=== PATIENT | female | born 1975 | race Caucasian/White ===

== ENCOUNTER 2017-03-29 07:06 | Day surgery (SDC) | payer BC ==
[2017-03-29] MEDS ORDERED: Sodium Chloride 0.9% 10 ML Syringe FLUSH PRN (07:30)
[2017-03-29] MEDS ORDERED: Lactated Ringers 1,000 ML IV SCH (07:30)
[2017-03-29] MEDS ORDERED: Propofol 200 MG/20 ML SDV IV ONE (09:00)
[2017-03-29] MEDS ORDERED: Midazolam 1 MG/ML 2 ML SDV IV ONE (09:00)
[2017-03-29] MEDS ORDERED: Lidocaine 2% 100 MG/5 ML Syringe IVPUSH ONE (09:00)
--- NOTE | 2017-03-29 09:44 | PCM.OPNOTE ---
- General Post-Op/Procedure Note Date of Surgery/Procedure: 03/29/17 Operative Procedure(s): egd with bx Findings: gastritis esophagitis Pre Op Diagnosis: epigastric abd pain Post-Op Diagnosis: gastritis. esophagitis Anesthesia Technique: MAC Primary Surgeon: Fracisco Paul Anesthesia Provider: Yazmin Maza Pathology: gastric distal esophagus Complications: None Condition: Good Free Text/Narrative:: see dictation
[2017-03-29 10:19] VITALS: BP 114/74
--- NOTE | 2017-03-29 11:00 | OR ---
DATE OF OPERATION: 03/29/2017 SURGEON: Fracisco Paul MD PROCEDURE PERFORMED: Esophagogastroduodenoscopy with cold forceps biopsy. PREOPERATIVE DIAGNOSIS: Epigastric abdominal pain and nausea. POSTOPERATIVE DIAGNOSIS: Gastritis and esophagitis. INDICATIONS FOR PROCEDURE: This is a 41-year-old white female, who was referred with a history of abnormal LFTs as well as epigastric abdominal pain and nausea. LFT abnormality appears to be consistent with fatty liver disease. However, she was offered an EGD to evaluate for gastritis. DESCRIPTION OF PROCEDURE: After an excellent IV sedation was administered, the bite block was inserted. The flexible endoscope was passed without difficulty down the patient's esophagus into the stomach. The stomach was insufflated, scope was passed through the pylorus to the second portion of duodenum and slowly withdrawn. The following findings were noted. The duodenum was unremarkable. Stomach, there was some gastritis, especially in the area of the antrum. Biopsies were taken. GE junction measured at 30 cm and she was noted to have esophagitis as well. Photos were taken of this area as well. Remainder of the esophageal exam was unremarkable. Biopsies were taken of the distal esophagus. The stomach was deflated, scope was removed. The patient tolerated the procedure well and was taken to recovery room in good condition. /[id number] /[id number]
== END 2017-03-29 10:37 | disposition home or self-care (01) ==
LOC: FB.SDS 07:06
PROVIDERS: ATTEND Surgery
DX: K31.89 Other diseases of stomach and duodenum (principal); K22.8 Other specified diseases of esophagus; E66.01 Morbid (severe) obesity due to excess calories; E03.9 Hypothyroidism, unspecified; Z68.41 Body mass index [BMI] 40.0-44.9, adult; Z90.49 Acquired absence of other specified parts of digestive tract; Z90.710 Acquired absence of both cervix and uterus; Z98.51 Tubal ligation status; Z88.8 Allergy status to other drugs, medicaments and biological substances; Z79.899 Other long term (current) drug therapy
CPT/HCPCS: 43239; 88305; 88313; 88342; J2250; J2704; J7120

== ENCOUNTER 2018-03-06 07:39 | Day surgery (SDC) | payer BC ==
[2018-03-06] MEDS ORDERED: Lactated Ringers 1,000 ML IV SCH (08:00)
[2018-03-06] MEDS ORDERED: Propofol 200 MG/20 ML SDV IV ONE (10:00)
[2018-03-06] MEDS ORDERED: Midazolam 1 MG/ML 2 ML SDV IV ONE (10:00)
--- NOTE | 2018-03-06 10:19 | PCM.OPNOTE ---
- General Post-Op/Procedure Note Date of Surgery/Procedure: 03/06/18 Operative Procedure(s): egd with bx Findings: gastritis esophagitis Pre Op Diagnosis: hx of gastritis. abd pain Post-Op Diagnosis: gastritis. esophagitis Anesthesia Technique: BRETT Primary Surgeon: Fracisco Paul Anesthesia Provider: Huan Moran Pathology: stomach and esophagus Complications: None Condition: Good Free Text/Narrative:: see dictatin
[2018-03-06 11:30] VITALS: BP 110/68
--- NOTE | 2018-03-06 12:02 | OR ---
DATE OF OPERATION: 03/06/2018 SURGEON: Fracisco Paul MD PROCEDURES PERFORMED: Upper endoscopy with cold forceps biopsy. PREOPERATIVE DIAGNOSES: History of epigastric abdominal pain and gastritis. POSTOPERATIVE DIAGNOSES: Gastritis and esophagitis. INDICATIONS FOR PROCEDURE: This is a 42-year-old white female who has the above- mentioned complaints, decided being treated. She was offered and accepted an EGD. DESCRIPTION OF PROCEDURE: After an excellent IV sedation was administered, the bite block was inserted. The flexible endoscope was passed without difficulty down the patient's esophagus and into the stomach. The stomach was insufflated. Scope was passed through the pylorus, to the second portion of the duodenum, and slowly withdrawn. The following findings were noted. Duodenum was unremarkable. Stomach demonstrates diffuse gastritis. Biopsies were taken. GE junction, mild erythema. Biopsies were taken. The remainder of the esophageal exam was unremarkable. Stomach was deflated. Scope was removed. The patient tolerated procedure well and was taken to recovery room in a good condition. /[id number]
== END 2018-03-06 11:20 | disposition home or self-care (01) ==
LOC: FB.SDS 07:39
PROVIDERS: ATTEND Surgery
DX: K29.51 Unspecified chronic gastritis with bleeding (principal); E66.01 Morbid (severe) obesity due to excess calories; Z68.41 Body mass index [BMI] 40.0-44.9, adult; E03.9 Hypothyroidism, unspecified; Z79.899 Other long term (current) drug therapy; Z88.5 Allergy status to narcotic agent
CPT/HCPCS: 43239; 88305; 88342; J2250; J2704; J7120